=== PATIENT | male | born 1955 | race Caucasian/White ===

== ENCOUNTER 2017-07-04 10:08 | Emergency (ER) | payer MEDICAID ==
--- NOTE | 2017-07-04 10:09 | EDPHY ---
H & P Time Seen by Provider: 07/04/17 10:09 Source: Patient Exam Limitations: No limitations Constitutional: Initial Vital Signs Temperature (C) 37.3 C 07/04/17 10:16 Heart Rate 93 07/04/17 10:16 Respiratory Rate 14 07/04/17 10:16 Blood Pressure 121/80 H 07/04/17 10:16 O2 Sat (%) 94 07/04/17 10:16 O2 Delivery Mode Room Air Allergies/Adverse Reactions: Sulfa (Sulfonamide Antibiotics) Allergy (Verified 07/04/17 10:16) Home Medications: Medication Instructions Recorded Unobtainable 07/04/17 Medical Decision Making ED Course/Re-evaluation: CHIEF COMPLAINT: N/V/D HISTORY OF PRESENT ILLNESS: The patient is a 62-year-old male, brought in by EMS with nausea, vomiting, and diarrhea that started this morning. The patient has associated fever and chills. He denies abdominal pain, headache, or chest pain. The patient does not have a history of clostridium difficile. REVIEW OF SYSTEMS: A 10 point review of systems was performed and is negative with the exception of the elements mentioned in the history of present illness. PHYSICAL EXAM: HR, BP, O2 Sat, RR. Temp noted General Appearance: Alert, appropriate, and non-toxic appearing. Head: Atraumatic without scalp tenderness or obvious injury Eyes: Pupils equal, round, reactive to light and accommodation, EOMI, no trauma , no injection. Ears: Clear bilaterally, no perforation, normal landmarks Nose: Atraumatic, no rhinorrhea, clear. Throat: There is no erythema or exudates, no lesions, normal tonsils, dry membranes moist. Neck: Supple, 2+ carotid upstroke, nontender, no lymphadenopathy. Respiratory: No retractions, no distress, no wheezes, and no accessory muscle use. Lungs are clear to auscultation bilaterally. Cardiovascular: Regular rate and rhythm, no murmurs, rubs, or gallops. Bilateral carotid, radial, dorsalis pedis, and posterior tibial pulses intact. Good capillary refill all extremities. Gastrointestinal: Abdomen is soft, nontender, non-distended, no masses, no rebound, no guarding, no peritoneal signs. Musculoskeletal: Normal active ROM of all extremities, atraumatic. Neurological: Alert, appropriate, and interactive. The patient has normal DTRs and non-focal cranial nerves, motor, sensory, and cerebellar exam. Skin: No rashes, good turgor, no nodules on palpation. Past medical history: Seizure disorder, Kidney stones, EtOH abuse, sober since 80s. Past surgical history: Bypass surgery Family history: Noncontributory Social history: Homeless. DIFFERENTIAL DIAGNOSIS: The differential diagnosis for the patient's abdominal pain included but was not limited to appendicitis, cholecystitis, hernias, testicular torsion, gastritis, and urinary tract infection. MEDICAL DECISION MAKING: [facility] with N/V/D that started this morning. The patient has a benign abdominal examination. IV was established, patient received 4mg morphine, 4mg Zofran and IV fluids. We will check lab work. The patient has slightly elevated WBC, labs are otherwise normal. Plan for PO trial. - Data Points Laboratory Results: Laboratory Results 07/04/17 10:10 07/04/17 10:10 07/04/17 07/04/17 10:10 10:10 WBC 10.70 10^3/uL H 10^3/uL (3.80-9.50) RBC 4.75 10^6/uL 10^6/uL (4.40-6.38) Hgb 15.6 g/dL g/dL (13.7-17.5) Hct 46.8 % % (40.0-51.0) MCV 98.5 fL fL (81.5-99.8) MCH 32.8 pg pg (27.9-34.1) MCHC 33.3 g/dL g/dL (32.4-36.7) RDW 19.1 % H % (11.5-15.2) Plt Count 369 10^3/uL 10^3/uL (150-400) MPV 8.8 fL fL (8.7-11.7) Neut % (Auto) 92.2 % H % (39.3-74.2) Lymph % (Auto) 1.7 % L % (15.0-45.0) [place] % (Auto) 4.2 % L % (4.5-13.0) Eos % (Auto) 1.3 % % (0.6-7.6) Baso % (Auto) 0.3 % % (0.3-1.7) Nucleat RBC Rel Count 0.0 % % (0.0-0.2) Absolute Neuts (auto) 9.87 10^3/uL H 10^3/uL (1.70-6.50) Absolute Lymphs (auto) 0.18 10^3/uL L 10^3/uL (1.00-3.00) Absolute Monos (auto) 0.45 10^3/uL 10^3/uL (0.30-0.80) Absolute Eos (auto) 0.14 10^3/uL 10^3/uL (0.03-0.40) Absolute Basos (auto) 0.03 10^3/uL 10^3/uL (0.02-0.10) Absolute Nucleated RBC 0.00 10^3/uL 10^3/uL (0-0.01) Immature Gran % 0.3 % % (0.0-1.1) Immature Gran # 0.03 10^3/uL 10^3/uL (0.00-0.10) Sodium 142 mEq/L mEq/L (134-144) Potassium 5.4 mEq/L H mEq/L (3.5-5.2) Chloride 103 mEq/L mEq/L (97-110) Carbon Dioxide 25 mEq/l mEq/l (22-31) Anion Gap 14 mEq/L mEq/L (8-16) BUN 14 mg/dL mg/dL (7-23) Creatinine 1.3 mg/dL mg/dL (0.7-1.3) Estimated GFR 56 Glucose 103 mg/dL H mg/dL (70-100) Calcium 10.1 mg/dL mg/dL (8.5-10.4) Total Bilirubin 0.4 mg/dL mg/dL (0.1-1.4) Conjugated Bilirubin 0.3 mg/dL mg/dL (0.0-0.5) Unconjugated Bilirubin 0.1 mg/dL mg/dL (0.0-1.1) AST 34 IU/L IU/L (17-59) ALT 31 IU/L IU/L (21-72) Alkaline Phosphatase 115 IU/L IU/L (38-126) Total Protein 7.9 g/dL g/dL (6.3-8.2) Albumin 4.7 g/dL g/dL (3.5-5.0) Lipase 145 IU/L IU/L (23-300) Medications Given: Discontinued Medications Morphine Sulfate (Morphine) 4 mg IVP EDNOW ONE Stop: 07/04/17 10:16 Last Admin: 07/04/17 10:23 Dose: 4 mg Ondansetron HCl (Zofran) 4 mg IVP EDNOW ONE Stop: 07/04/17 10:16 Last Admin: 07/04/17 10:22 Dose: 4 mg Departure - Departure Disposition: Home, Routine, Self-Care Clinical Impression: Gastroenteritis Condition: Good Instructions: Gastroenteritis (ED) Additional Instructions: Drink plenty of fluids. I recommend clear liquid diet for the next 24 hours with gradual diet advancement. [facility] has walk-in appointments for the homeless at the following days/locations. No appointment is needed. Wednesday 8-10 am @ [facility] 11 AM-1 PM @ [facility] Wednesday 8-10:30 AM @ [facility] Wednesday 8-10 AM @ [facility] 2-4 PM @ [facility] Wednesday 8-10 AM @ [facility] Referrals: [facility],. [Clinic] - As per Instructions Report Scribed for: Miguelito Aguila Report Scribed by: Krys Velasco Date of Report: 07/04/17 Time of Report: 10:18
[2017-07-04] MEDS ORDERED: ONDANSETRON 4 MG/2 ML VIAL IVP ONE (10:15)
[2017-07-04 10:19] VITALS: TEMP 99.1; O2SAT 94
[2017-07-04 10:22] LABS: PLATELET COUNT 369 10^3/uL (150-400)
--- NOTE | 2017-07-04 11:43 | ASDISCHSUM ---
Discharge Information Plan Status:Homeless/[facility] Medically Cleared to Leave: Discharge Date: CM D/C Disposition:Streets (Homeless) ADT D/C Disposition:Home, Routine, Self-Care Projected Discharge Date: Transportation at D/C:None or Unknown Discharge Delay Reason: Follow-Up Date: Discharge Slot: Final Diagnosis: Placement Information Patient Contact Information Contact Name:DESTINEY Relationship: Address: Home Phone: Work Phone: City: Alternate Phone: State/Zip Code: Email: Financial Information Financial Class: Primary Plan Desc:[employer] [place] Primary Plan Number:[id number] Secondary Plan Desc: Secondary Plan Number: Assessment Information LACE LACE Acuity / Level of Care Answers: No. Emergency dept visits in Answers: 1 last 6 months Score: 1 Date Signed: 07/04/2017 11:43 AM Electronically Signed By:Esme Colon RN Intervention Information
[2017-07-04 11:44] VITALS: BP 128/84; PULSE 102; RESP 16
== END 2017-07-04 11:55 | disposition home or self-care (01) ==
DX: K52.9 Noninfective gastroenteritis and colitis, unspecified (principal)
CPT/HCPCS: 96374; J2405